=== PATIENT | male | born 1960 ===

== ENCOUNTER 2019-04-12 09:56 | Day surgery (SDC) | payer BC ==
[~2019-04-12] VITALS: Ht 180.3 cm; Wt 111.3 kg
[2019-04-12 10:33] VITALS: BP 155/104; PULSE 69; TEMP 97.5
[2019-04-12 13:55] VITALS: BP 131/85; PULSE 69; TEMP 96.9
--- NOTE | 2019-04-12 13:55 | NUR ---
TO BAY 6 PER CART FROM ENDOSCOPY. ALERT ORIENTED X3, TALKING TO STAFF AND . AMBULATED TO RECLINER WITH MINIMAL ASSIST. RECEIVED WATER.
[2019-04-12 14:04] VITALS: TEMP 96.9
[2019-04-12 14:10] VITALS: BP 133/88; PULSE 64
--- NOTE | 2019-04-12 14:10 | NUR ---
DR BARRAZA INTO TALK WITH PATIENT AND HIS .
--- NOTE | 2019-04-12 14:25 | NUR ---
RECEIVED DISCHARGE INSTRUCTIONS AND VERBALIZED UNDERSTANDING. DISCONTINUED IV AND INT- CATHETER INTACT PATIENT GETTING DRESSED AND WENT TO GET THE CAR.
--- NOTE | 2019-04-12 14:35 | NUR ---
DISCHARGED PER WC BY NURSING STAFF TO PRIVATE CAR IN CARE OF -BELLE.
== END 2019-04-12 14:39 | disposition home or self-care (01) ==
LOC: SDCO 09:56
DX: Z12.11 Encounter for screening for malignant neoplasm of colon (principal); D12.2 Benign neoplasm of ascending colon; K62.89 Other specified diseases of anus and rectum
CPT/HCPCS: J1200; J2250; J2405; J3010; J7030

== ENCOUNTER 2019-08-21 16:06 | Emergency (ER) | payer BC ==
[~2019-08-21] VITALS: Ht 182.9 cm; Wt 111.4 kg
[2019-08-21 16:06] VITALS: TEMP 97.9
[2019-08-21 18:01] VITALS: BP 136/78; PULSE 91
== END 2019-08-21 18:12 | disposition home or self-care (01) ==
LOC: COL.ER 16:06
DX: S13.4XXA Sprain of ligaments of cervical spine, initial encounter (principal); S00.93XA Contusion of unspecified part of head, initial encounter; R40.2412 Glasgow coma scale score 13-15, at arrival to emergency department; V19.9XXA Pedal cyclist (driver) (passenger) injured in unspecified traffic accident, initial encounter; Y92.830 Public park as the place of occurrence of the external cause